=== PATIENT | female | born 1985 | race Caucasian/White ===

== ENCOUNTER 2019-05-30 13:24 | Emergency (ER) | payer BC ==
[2019-05-30 14:00] VITALS: BP 112/71; PULSE 88; RESP 18; TEMP 100.8
[2019-05-30] MEDS ORDERED: ACETAMINOPHEN TAB 325 MG TAB PO STA (14:20)
--- NOTE | 2019-05-30 14:20 | ED ---
General Adult HPI - General Chief complaint: Extremity Injury, Upper Stated complaint: Mastitis Time Seen by Provider: 05/30/19 14:00 Source: patient, RN notes reviewed Mode of arrival: ambulatory Limitations: no limitations - History of Present Illness Initial comments: 34-year-old female without any significant past medical history presents for fever and right breast pain. Patient is 2 weeks and is currently breast-feeding. States she started to feel febrile yesterday and was having chills. States that her right breast has been painful and red. States she is still feeding from this breast but is not getting as much output. Denies any abdominal pain. Denies vaginal discharge. Patient states her [employer] is from [facility] and she is here on vacation. States she called them today and they said to go to the ER for antibiotics.Patient has no other complaints at this time including shortness of breath, chest pain, abdominal pain, nausea or vomiting, headache, or visual changes. - Related Data Home Medications Medication Instructions Recorded Confirmed FLUoxetine HCL [PROzac] 20 mg PO DAILY 05/30/19 05/30/19 Pnv,Calcium 72/Iron/Folic Acid 1 tab PO DAILY 05/30/19 05/30/19 [ Plus Tablet] Allergies Allergy/AdvReac Type Severity Reaction Status Date / Time No Known Allergies Allergy Verified 05/30/19 14:25 Review of Systems ROS Statement: Those systems with pertinent positive or pertinent negative responses have been documented in the HPI. ROS Other: All systems not noted in ROS Statement are negative. Past Medical History Past Medical History: No Reported History History of Any Multi-Drug Resistant Organisms: None Reported Past Surgical History: No Surgical Hx Reported Past Psychological History: No Psychological Hx Reported Smoking Status: Never smoker Past Alcohol Use History: Rare Past Drug Use History: None Reported General Exam Limitations: no limitations General appearance: alert, in no apparent distress Head exam: Present: atraumatic, normocephalic, normal inspection Eye exam: Present: normal appearance, PERRL, EOMI. Absent: scleral icterus, conjunctival injection, periorbital swelling ENT exam: Present: normal exam, mucous membranes moist Neck exam: Present: normal inspection, full ROM. Absent: tenderness, meningismus, lymphadenopathy Respiratory exam: Present: normal lung sounds bilaterally. Absent: respiratory distress, wheezes, rales, rhonchi, stridor Cardiovascular Exam: Present: regular rate, normal rhythm, normal heart sounds. Absent: systolic murmur, diastolic murmur, rubs, gallop, clicks GI/Abdominal exam: Present: soft, normal bowel sounds. Absent: distended, tenderness (Nontender abdomen), guarding, rebound, rigid Neurological exam: Present: alert Psychiatric exam: Present: normal affect, normal mood Skin exam: Present: erythema (Patient has about 6 cm x 4 cm of non demarcated erythema noted to the right lateral inferior breast with mild tenderness consistent with cellulitis. No induration or fluctuance indicative of abscess.) Course Vital Signs 05/30/19 13:58 Temperature 100.8 F H Pulse Rate 88 Respiratory 18 Rate Blood Pressure 112/71 O2 Sat by Pulse 98 Oximetry Medical Decision Making - Medical Decision Making 34-year-old female was 2 weeks presents to the emergency room if her fever and right breast pain. Patient has had a fever intermittently since yesterday. Patient is also had right wrist pain and redness. On exam she has about a 6 cm x 4 cm poorly demarcated area of erythema of the right lateral inferior breast. This has mild tenderness. No induration or fluctuance concerning for abscess at this time. No abdominal tenderness or other complaints. On presentation she does have a fever of 100.8, patient given Tylenol. Discussed this case with Dr. Mcelroy, patient will be given dicloxacillin as she is currently breast-feeding and this is first line treatment. Discussed warm compresses and antipyretic use. Discussed following up with her [employer] as soon as possible and returning here if she has any worsening symptoms. Disposition Clinical Impression: Acute mastitis of right breast Disposition: HOME SELF-CARE Condition: Good Instructions (If sedation given, give patient instructions): Mastitis (ED) Additional Instructions: Please take antibiotic as directed. Please take Motrin and Tylenol alternating every 3 hours. Apply warm compresses and continue breast-feeding. If symptoms worsen return immediately to the emergency department. Prescriptions: Dicloxacillin [Dynapen] 500 mg PO Q6H 10 Days #40 capsule Is patient prescribed a controlled substance at d/c from ED?: No Referrals: Nonstaff,Physician [Primary Care Provider] - 1-2 days Time of Disposition: 14:22
== END 2019-05-30 14:35 | disposition home or self-care (01) ==
LOC: EC 13:24
DX: O91.23 Nonpurulent mastitis associated with lactation (principal); Z79.899 Other long term (current) drug therapy
CPT/HCPCS: 99283